=== PATIENT | male | born 1985 | race Caucasian/White ===

== ENCOUNTER 2022-04-06 18:35 | Emergency (ER) | payer OTHER ==
[~2022-04-06] VITALS: Ht 172.7 cm; Wt 90.3 kg
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
[2022-04-06 20:36] VITALS: BP 127/84
== END 2022-04-06 20:37 | disposition home or self-care (01) ==
LOC: ER FS 18:38
DX: S06.0X0A Concussion without loss of consciousness, initial encounter (principal); Z28.310 Unvaccinated for COVID-19; W22.8XXA Striking against or struck by other objects, initial encounter; Y92.59 Other trade areas as the place of occurrence of the external cause; Y99.0 Civilian activity done for income or pay
CPT/HCPCS: 70450